=== PATIENT | female | born 1965 | race Caucasian/White ===

== ENCOUNTER 2018-05-30 16:15 | Emergency (ER) | payer OTHER ==
[~2018-05-30] VITALS: Ht 170.2 cm; Wt 74.8 kg
[2018-05-30 16:45] VITALS: BP 129/70
--- NOTE | 2018-05-30 16:51 | NUR ---
PT AMBULATES TO CHAIR E
--- NOTE | 2018-05-30 17:00 | NUR ---
PT IS A 53 Y/O FEMALE WHO PRESENTS TO THE ED C/O SORE THROAT. PT REPORTS 10/10 ACHING PAIN. PT ALSO REPORTS SX'S OF COUGH, RUNNY NOSE AND BILATERAL EAR PAIN X3 DAYS. PT DENIES CP, SOB, N/V/D. PT AWAKE AND ALERT, RR EVEN/UNLABORED. PT REPOSITIONED FOR COMFORT, BED IN LOWEST POSITION. ER PA LIEBERMAN NOTIFIED. WILL CONTINUE TO MONITOR. HX; DENIES RX; DENIES
--- NOTE | 2018-05-30 17:07 | NUR ---
STREP AND FLU SPECIMEN COLLECTED AND GIVEN TO PREDATORY ANIMAL EXTERMINATOR
[2018-05-30] MEDS ORDERED: IBUPROFEN 600 MG TAB PO ONE (17:45)
[2018-05-30 18:15] VITALS: BP 119/82
--- NOTE | 2018-05-30 18:15 | NUR ---
Patient discharged with v/s stable. Written and verbal after care instructions given and explained. Patient alert, oriented and verbalized understanding of instructions. Ambulatory with steady gait. All questions addressed prior to discharge. ID band removed. Patient advised to follow up with PMD. Rx of FLONASE 50MCG/ACTUATION given. Patient educated on indication of medication including possible reaction and side effects. Opportunity to ask questions provided and answered.
== END 2018-05-30 18:15 | disposition home or self-care (01) ==
LOC: MED 16:15
DX: J02.9 Acute pharyngitis, unspecified (principal); R09.89 Other specified symptoms and signs involving the circulatory and respiratory systems
CPT/HCPCS: 87081; 87804; 99283

== ENCOUNTER 2021-02-27 23:22 | Emergency (ER) | payer OTHER ==
[~2021-02-27] VITALS: Ht 170.2 cm; Wt 77.1 kg
[2021-02-27 23:39] VITALS: BP 127/87
[2021-02-28] MEDS ORDERED: PROCHLORPERAZINE 10 MG/2 ML VIAL IM ONE
[2021-02-28] MEDS ORDERED: diphenhydrAMINE 50 MG/ML VIAL IM ONE
[2021-02-28] MEDS ORDERED: KETOROLAC 60 MG/2 ML VIAL IM ONE ×2 (01:19)
[2021-02-28] MEDS ORDERED: diphenhydrAMINE 50 MG/ML VIAL ONE (01:21)
[2021-02-28] MEDS ORDERED: PROCHLORPERAZINE 10 MG/2 ML VIAL ONE (01:21)
[2021-02-28 03:33] VITALS: BP 127/87
--- NOTE | 2021-02-28 03:33 | NUR ---
NO NURSING INTERVENTION REQUIREDPatient discharged with v/s stable. Written and verbal after care instructions given and explained. Patient verbalized understanding. Ambulatory with steady gait. All questions addressed prior to discharge. Advised to follow up with PMD.
== END 2021-02-28 03:33 | disposition home or self-care (01) ==
LOC: MED 23:22
DX: R51.9 Headache, unspecified (principal); R11.2 Nausea with vomiting, unspecified
CPT/HCPCS: 70450; 96372; 99284; J0780; J1200; J1885